=== PATIENT | male | born 1975 | race Caucasian/White ===

== ENCOUNTER 2020-02-13 15:33 | Outpatient (REF) | payer BC, SELFPAY | END 2020-02-13 15:34 | disposition home or self-care (01) | LOC: HO.LAB 15:33 | PROVIDERS: Visit Provider Internal Medicine | DX: Z20.828 Contact with and (suspected) exposure to other viral communicable diseases (principal) | CPT/HCPCS: 87635 ==

== ENCOUNTER 2023-07-08 13:46 | Outpatient (AMB) | payer BC, SELFPAY ==
[2023-07-08 13:49] VITALS: BP 138/72; PULSE 70; O2SAT 100; BMI 30.1
--- NOTE | 2023-07-08 13:49 | MHC.PC.OV ---
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 per policy Accompanied by: Self / Same As Patient Allergies No Known Allergies Allergy (Unverified 01/10/20 14:54) Medication List - Last Reconciled 07/08/23 by Momo Johnson MD [COLLAGEN powder scoop PO .QD] Tobacco use date assessed: 07/08/23 Dental Screening Dental Screen Date: 07/08/23 Did you have a dental visit in the last 12 months?: Yes Did you have a dental problem in the last 6 months where you did not have access to dental care?: No Was dental information given to patient?: Patient has dentist HPI New patient Establish Care/see bulletin board HPI Details 47-year-old obese male with hypercholesterolemia coming in for the 1st time. PFSH Family History (Updated 07/08/23 @ 14:08 by Momo Johnson MD) Father Heart attack Mother Breast cancer Social History (Updated 07/08/23 @ 14:09 by Momo Johnson MD) Housing: House Alcohol intake: current Comment: 4-5x a week 4 beers Patient Tobacco Use Status: Never used Tobacco Current occupational status: employed Cognitive needs: No Hearing needs: No Vision needs: Yes (glasses ) Questionnaire PHQ-9 Over the last 2 weeks, how often have you been bothered by any of the following problems? 1. Little interest or pleasure in doing things: not at all 2. Feeling down, depressed, or hopeless: not at all 3. Trouble falling or staying asleep, or sleeping too much: not at all 4. Feeling tired or having little energy: not at all 5. Poor appetite or overeating: not at all 6. Feeling bad about yourself - or that you are a failure or have let yourself or your family down: not at all 7. Trouble concentrating on things, such as reading the newspaper or watching television: not at all 8. Moving or speaking so slowly that other people could have noticed. Or the opposite - being so fidgety or restless that you have been moving around a lot more than usual: not at all 9. Thoughts that you would be better off or of hurting yourself in some way: not at all Total score: 0 Source: Developed by Drs. Deni Smith, Anel Gaspar, Cisco Mitchell and colleagues, with an educational helen from [employer]. Thrive Questionnaire Date Thrive assessed: 07/08/23 I am a: Patient What is your living situation today?: I have a steady place to live Within the past 12 months, did the food you bought not last and you didn't have the money to get more?: Never true Within the past 12 months, did you worry whether your food would run out before you got money to buy more?: Never true Do you have trouble paying for medicines?: No Do you have trouble getting transportation to medical appointments?: No Do you have trouble paying your heating and electricity bill?: No Do you have trouble taking care of your child, family member or friend?: No Do you have trouble with day-to-day activities such as bathing, preparing meals, shopping, managing finances, etc.?: No Are you currently unemployed and looking for a job?: No Are you interested in more education?: No Please select the resources that you would like help with: None THRIVE Score: 0 AUDIT C Alcohol Use Questionnaire (AUDIT-C) 1. How often do you have a drink containing alcohol?: Never Total Score: 0 BELINDA-7 AMB Questionnaire BELINDA-7 Date BELINDA - 7 assessed: 07/08/23 Feeling nervous, anxious, or on edge: 0 = Not at all Not being able to stop or control worryin = Not at all Worrying too much about different things: 0 = Not at all Trouble relaxin = Not at all Being so restless that it is hard to sit still: 0 = Not at all Becoming easily annoyed or irritable: 0 = Not at all Feeling afraid as if something awful might happen: 0 = Not at all Total BELINDA-7 score (0-4 normal; 5-9 mild; 10-14 moderate; 15-21 severe): 0 Source: Developed by Anel Stone Kurt Kroenke and colleagues, with an educational helen from [employer]. Physical exam (Primary Care) Vital Signs: Last Vital Signs Pulse 70 07/08/23 13:49 BP 138/72 07/08/23 13:49 Pulse Ox 100 07/08/23 13:49 Oxygen Delivery Method Room Air 07/08/23 13:49 BMI result Body Mass Index 30.1 Tobacco/Smoking Status: Tobacco use Status Tobacco use date assessed 07/08/23 07/08/23 13:50 Patient Tobacco Use Status Never used Tobacco 07/08/23 13:50 PHQ-9: PHQ-9 Score PHQ-9: Total score 0 07/08/23 14:04 Thrive Assessment: Date of Thrive Assessment Date Thrive assessed 07/08/23 07/08/23 13:50 Const General: alert; No acute distress Eyes Conjunctivae: conjunctivae normal Resp Auscultation: clear to auscultation bilaterally Cardio Rate: regular rate Rhythm: regular rhythm GI Inspection: Yes normal to inspection Abdomen image: 1. Bulging midline of the abdominal musculature Extrem General: Yes normal to inspection and No edema Assessment and Plan Assessment & Plan (1) Obesity (BMI 30.0-34.9): Code(s): E66.9 - Obesity, unspecified Plan: Diet and exercise (2) Hypercholesterolemia: Code(s): E78.00 - Pure hypercholesterolemia, unspecified Plan: Avoid fried foods, chicken skin, eggs, butter margarine, pastries and meat. Be it pork or beef they have a lot of cholesterol LDL goal of less than 130 and triglyceride of less than 150 will request for new blood work (3) Colon cancer screening: Code(s): Z12.11 - Encounter for screening for malignant neoplasm of colon Plan: Referral to Gastroenterology done (4) Diastasis recti: Code(s): M62.08 - Separation of muscle (nontraumatic), other site Plan: Reassurance Orders: Orders Comprehensive Met. Panel Today E78.00 - Pure hypercholesterolemia, unspecified Free T4 (Free Thyroxine) Today E78.00 - Pure hypercholesterolemia, unspecified Complete Blood Count Auto Diff Today E78.00 - Pure hypercholesterolemia, unspecified Thyroid Stimulating Hormone Today E78.00 - Pure hypercholesterolemia, unspecified Vitamin B12 and Folate Today E78.00 - Pure hypercholesterolemia, unspecified Lipid Panel Today E78.00 - Pure hypercholesterolemia, unspecified Referrals Gastroenterology Referral Z12.11 - Encounter for screening for malignant neoplasm of colon Coding Level of Care Code New Pt Level 4 (00537) Diagnoses Obesity (BMI 30.0-34.9) E66.9 Hypercholesterolemia E78.00 Colon cancer screening Z12.11 Diastasis recti M62.08
== END 2023-07-08 14:25 | disposition home or self-care (01) ==
PROVIDERS: PCP Internal Medicine; Visit Provider Internal Medicine
DX: E78.00 Pure hypercholesterolemia, unspecified (principal); E66.9 Obesity, unspecified; Z68.30 Body mass index [BMI] 30.0-30.9, adult; Z12.11 Encounter for screening for malignant neoplasm of colon; M62.08 Separation of muscle (nontraumatic), other site
CPT/HCPCS: 99204

== ENCOUNTER 2023-10-04 09:01 | Outpatient (AMB) | payer BC, SELFPAY ==
[2023-10-04 09:12] VITALS: BP 151/77; PULSE 54; BMI 30.1
--- NOTE | 2023-10-04 09:12 | A.OFFVIS_ITS ---
Vital Signs 10/04/23 09:12 Height 5 ft 9 in Weight 203 lb 11.314 oz BMI 30.1 BP 151/77 H Blood Pressure Location Rt brachial Position Sitting Pulse 54 Intake Visit Reasons: Colonoscopy screening Intake Note: Jose Luis presents in office today as a new patient for colonoscopy screening. CC: Patient has never had a colonoscopy before. Denies having any GI symptoms or oncerns today. Life Skills Coach Required: No Allergies No Known Allergies Allergy (Verified 10/04/23 09:25) HPI HPI Colonoscopy screening: Details: 48-year-old male here for preprocedural meeting to discuss a screening colonoscopy. He is referred by Momo Johnson of [facility] primary care. P.m. X Obesity High cholesterol Diastasis recti * SURGICAL HISTORY pT DENIES * ALLERGIES: NKDA * [employer] LABS: None in our system TODAY'S VISIT This is his first colonoscopy. He denies any bowel or upper GI problems.. He is naive to anesthesia and sedation.. He denies any cardiac or respiratory problems.. No ID problems. There is no known FHX of crc or polyps. [facility] Surgical History (Updated 10/04/23 @ 09:25 by EVAN Zarate) No pertinent past surgical history Family History Father Heart attack Mother Breast cancer Social History Housing: House Alcohol intake: current Comment: 4-5x a week 4 beers Patient Tobacco Use Status: Never used Tobacco Current occupational status: employed Cognitive needs: No Hearing needs: No Vision needs: Yes (glasses ) Review of Systems Const Denies fatigue, Denies fever(s), Denies night sweats, Denies poor appetite and Denies weight loss ENT Reports Normal hearing present, Denies dental pain, Denies dysphagia, Denies hearing loss, Denies mouth pain, Denies odynophagia, Denies throat swelling, Denies tongue swelling and Reports other (Dentition adequate) Card Reports no additional complaints Resp Reports no additional complaints GI Details: Denies abdominal pain, Denies melena, Denies bloating, Denies hematochezia, Denies constipation, Denies GI cramping, Denies dysphagia, Denies excessive flatus, Denies early satiety, Denies heartburn, Denies diarrhea, Denies nausea, Denies odynophagia, Denies vomiting and Denies hematemesis Skin/Breast Denies pruritus, Denies lesions, Denies rash and Denies jaundice Neuro Reports Normal hearing present and Denies Abnormal speech present Endo Denies fatigue Aller/Immun Denies throat swelling and Denies tongue swelling Physical Exam Vital Signs: Last Vital Signs Pulse 54 10/04/23 09:12 BP 151/77 H 10/04/23 09:12 BMI result Body Mass Index 30.1 Const General: cooperative, no acute distress, well developed and well groomed Nutritional Appearance: well nourished and obese centrally obese Orientation/consciousness: oriented to person, oriented to place and oriented to time Limitations: No language barrier HEENT Head: Yes normocephalic and Yes atraumatic Eyes General: appearance normal, both eyes and all related structures Pupils: Equal, round and reactive pupils present Neck Neck: Yes normal visual inspection and Yes no lymphadenopathy Thyroid: Thyroid normal Resp Effort & Inspection: normal respiratory effort and able to speak in complete sentences Auscultation: clear to auscultation bilaterally Cardio Rate: regular rate Rhythm: regular rhythm Heart sounds: Normal, physiologic split S2 sound present Peripheral pulses: radial pulses present and posterior tibial pulses present GI Other: Rectus abdominis Inspection: No distended, No Abdominal panniculus present and Yes obesity Palpation (GI): Soft to palpation, nontender, no guarding, not rigid and No hepatosplenomegaly present Percussion: Yes normal to percussion Auscultation: normal bowel sounds Rectal Exam - Male: Yes deferred Skin General skin exam: no rashes or lesions noted, turgor normal, skin not dry, no jaundice, No spider nevi and no striae Rashes: no rashes Nails: normal Neuro General: oriented to person, oriented to place and oriented to time Cranial nerves: Yes Equal, round and reactive pupils present and Yes Normal hearing present Speech: No Abnormal speech present Extrem General: Yes normal to inspection, No clubbing, No cyanosis and No edema Psych Appearance: grossly normal and well kempt Mental Status: mental status grossly normal Speech and movement: Normal speech and movement present Affect: normal affect Attitude: cooperative Thought process: Normal thought process present and not confabulating Thought content: Normal thought content present Insight: Good insight present (Psych) Judgement: Good judgement present (Psych) Assessment & Plan Assessment & Plan (1) Pre-op examination: Code(s): Z01.818 - Encounter for other preprocedural examination Category: Medical Plan This is his first colonoscopy. He denies any bowel or upper GI problems.. He is naive to anesthesia and sedation.. He denies any cardiac or respiratory problems.. No ID problems. There is no known FHX of crc or polyps. Orders: Orders Colonoscopy - GI Use Only Today Z01.818 - Encounter for other preprocedural examination Comprehensive Met. Panel Today Z01.818 - Encounter for other preprocedural examination Complete Blood Count Auto Diff Today Z01.818 - Encounter for other preprocedura l examination Medications: New sod sulf-pot chloride-mag sulf 1.479-0.188- 0.225 gram (Sutab) PO PER PKG DIR for colonoscopy prep 24 tabs 0RF Coding Level of Care Code New Pt Level 3 (56666) Diagnoses Pre-op examination Z01.81
== END 2023-10-04 10:11 | disposition home or self-care (01) ==
PROVIDERS: PCP Internal Medicine; Visit Provider Nurse Practitioner
DX: Z01.818 Encounter for other preprocedural examination (principal); Z12.11 Encounter for screening for malignant neoplasm of colon
CPT/HCPCS: S0285

== ENCOUNTER → 2023-10-04 09:01 | Outpatient (BNVA) | payer BC, SELFPAY | PROVIDERS: PCP Internal Medicine; Visit Provider Nurse Practitioner ==

== ENCOUNTER 2023-11-08 09:09 | Outpatient (REF) | payer BC, SELFPAY ==
[2023-11-08 09:21] LABS: MANUAL DIFF FLAG NO
[2023-11-08 10:34] LABS: Basophils Absolute Auto 0.1 X10*3/uL (0.0-0.2); Basophils Percent Auto 0.7 % (0-2); Eosinophils Absolute Auto 0.1 X10*3/uL (0.0-0.4); Eosinophils Percent Auto 0.9 % (0-4); Hematocrit 47.4 % (42.0-52.0); Hemoglobin 16.4 g/dl (14.0-18.0); Imm Gran Abs Auto 0.03 X10*3/uL (0.00-0.03); Imm Gran Pct Auto 0.3 % (0.0-0.4); Lymphocytes Absolute Auto 2.3 X10*3/uL (1.2-4.9); Lymphocytes Percent Auto 26.1 % (20-40); Mean Corpuscular HGB Conc 34.6 g/dl (31.0-36.0); Mean Corpuscular Hemoglobin 31.2 pg (27.0-33.0); Mean Corpuscular Volume 90.3 fL (80.0-98.0); Mean Platelet Volume 10.4 fL (9.4-12.4); Monocytes Percent Auto 11.1 % (2-11); Neutrophils Absolute Auto 5.3 x10*3/uL (2.0-8.3); Neutrophils Percent Auto 60.9 % (45-73); Platelet Count 227 X10*3/uL (160-400); Red Blood Count 5.25 X10*6/uL (4.60-5.80); Red Cell Distribution Width 12.6 % (11.0-16.0); White Blood Count 8.8 X10*3/uL (4.8-10.8)
[2023-11-08 11:23] LABS: Alanine Aminotransferase 39 U/L (0-40); Albumin Level 4.6 g/dL (3.5-5.0); Alkaline Phosphatase 58 U/L (39-117); Anion Gap 16 (12-20); Aspartate Amino Transferase 32 U/L (5-37); Bilirubin Total 1.2 mg/dL (0.0-1.0); Blood Urea Nitrogen 12 mg/dL (9-16); Calcium 9.4 mg/dL (8.4-10.2); Carbon Dioxide 27 mmol/L (22-29); Chloride 101 mmol/L (96-108); Cholesterol 203 mg/dL (<200); Estimated Glomerular Filt Rate > 60; Glucose Random 85 mg/dL (60-115); HDL Cholesterol 46 mg/dL (>40); LDL Cholesterol Calculated 117 mg/dL (<100); Potassium 3.6 mmol/L (3.3-5.1); Sodium 140 mmol/L (135-145); Total Protein 7.9 g/dL (6.5-8.0); Triglycerides 204 mg/dL (<150)
[2023-11-08 11:25] LABS: Thyroid Stimulating Hormone 2.78 uIU/mL (0.32-4.0)
[2023-11-08 11:38] LABS: Folate 12.7 ng/mL (> or = 4.0); Vitamin B12 300 pg/mL (200-900)
== END 2023-11-08 09:10 | disposition home or self-care (01) ==
LOC: HO.LAB 09:09
PROVIDERS: Absent Provider Nurse Practitioner; PCP Internal Medicine; Visit Provider Internal Medicine
DX: E78.00 Pure hypercholesterolemia, unspecified (principal)
CPT/HCPCS: 36415; 80053; 80061; 82607; 82746; 84439; 84443; 85025

== ENCOUNTER 2023-11-08 13:48 | Outpatient (AMB) | payer BC, SELFPAY ==
[2023-11-08 13:49] VITALS: BP 148/90; PULSE 59; O2SAT 97; BMI 29.7
--- NOTE | 2023-11-08 13:49 | A.OFFPC_ITS ---
Vital Signs 11/08/23 13:49 Height 5 ft 9 in Weight 201 lb 0.6 oz BMI 29.7 BP 148/90 H Blood Pressure Location Lt brachial Position Sitting Pulse 59 Pulse Source Pulse Oximeter Pulse Oximetry (%) 97 Oxygen Delivery Method Room Air Intake Visit Reasons: Annual exam Intake Note: Patient is here today for a physical. Accident Examiner Required: No Allergies No Known Allergies Allergy (Verified 11/08/23 13:50) Medication List - Last Reconciled 11/08/23 by Momo Johnson MD blood pressure monitor (Blood Pressure Kit) As directed [COLLAGEN powder scoop PO .QD] multivitamin 1 tab PO DAILY sod sulf-pot chloride-mag sulf 1.479-0.188- 0.225 gram (Sutab) PO PER PKG DIR for colonoscopy prep Tobacco use date assessed: 11/08/23 Dental Screening Dental Screen Date: 11/08/23 Did you have a dental visit in the last 12 months?: Yes Did you have a dental problem in the last 6 months where you did not have access to dental care?: No Was dental information given to patient?: Patient has dentist HPI Annual exam HPI Details 48-year-old obese male with hypercholest erolemia coming in for physical exam last seen in June 2023. Patient was referred to Gastroenterology for colon cancer screening. And was seen in September 2023 [facility] Medical History (Updated 11/08/23 @ 14:02 by Momo Johnson MD) Obesity (BMI 30.0-34.9) Surgical History (Updated 10/04/23 @ 09:25 by EVAN Zarate) No pertinent past surgical history Family History Father Heart attack Mother Breast cancer Social History (Updated 11/08/23 @ 14:09 by Momo Johnson MD) Housing: House Alcohol intake: current Comment: 4-5x a week glass of wine Patient Tobacco Use Status: Never used Tobacco Current occupational status: employed Cognitive needs: No Hearing needs: No Vision needs: Yes (glasses ) Questionnaire PHQ-9 Over the last 2 weeks, how often have you been bothered by any of the following problems? 1. Little interest or pleasure in doing things: not at all 2. Feeling down, depressed, or hopeless: not at all 3. Trouble falling or staying asleep, or sleeping too much: not at all 4. Feeling tired or having little energy: not at all 5. Poor appetite or overeating: not at all 6. Feeling bad about yourself - or that you are a failure or have let yourself or your family down: not at all 7. Trouble concentrating on things, such as reading the newspaper or watching television: not at all 8. Moving or speaking so slowly that other people could have noticed. Or the opposite - being so fidgety or restless that you have been moving around a lot more than usual: not at all 9. Thoughts that you would be better off or of hurting yourself in some way: not at all Total score: 0 Depression Screening Interpretation: Negative Depression Screening Done: Yes 10871 - PHQ-9 Billing: Yes Source: Developed by Drs. Deni Smith, Anel Gaspar, Cisco Mitchell and colleagues, with an educational helen from [employer]. Thrive Questionnaire Date Thrive assessed: 07/08/23 I am a: Patient What is your living situation today?: I have a steady place to live Within the past 12 months, did the food you bought not last and you didn't have the money to get more?: Never true Within the past 12 months, did you worry whether your food would run out before you got money to buy more?: Never true Do you have trouble paying for medicines?: No Do you have trouble getting transportation to medical appointments?: No Do you have trouble paying your heating and electricity bill?: No Do you have trouble taking care of your child, family member or friend?: No Do you have trouble with day-to-day activities such as bathing, preparing meals, shopping, managing finances, etc.?: No Are you currently unemployed and looking for a job?: No Are you interested in more education?: No Please select the resources that you would like help with: None Currently or been in a relationship where the following occur: No concerns reported THRIVE Score: 0 AUDIT C Alcohol Use Questionnaire (AUDIT-C) 1. How often do you have a drink containing alcohol?: Never Total Score: 0 BELINDA-7 AMB Questionnaire BELINDA-7 Date BELINDA - 7 assessed: 11/08/23 Feeling nervous, anxious, or on edge: 0 = Not at all Not being able to stop or control worryin = Not at all Worrying too much about different things: 0 = Not at all Trouble relaxin = Not at all Being so restless that it is hard to sit still: 0 = Not at all Becoming easily annoyed or irritable: 0 = Not at all Feeling afraid as if something awful might happen: 0 = Not at all Total BELINDA-7 score (0-4 normal; 5-9 mild; 10-14 moderate; 15-21 severe): 0 Source: Developed by Drs. Deni Smith, Anel Gaspar, Cisco Mitchell and colleagues, with an educational helen from [employer]. BELINDA-7 Assessment Billing BELINDA-7 Assessment Tool: BELINDA-7 Assessment 06220 Review of Systems Const Denies poor appetite and Denies weakness Eyes Denies no additional complaints ENT Reports Normal hearing present, Denies dizziness, Denies nasal congestion, Denies tinnitus and Denies sore throat Card Denies chest pain, Denies syncope, Denies rapid heart rate and Denies dyspnea Resp Denies cough and Denies dyspnea GI Denies change in stool character, Reports constipation, Denies diarrhea, Denies nausea and Denies vomiting Denies dysuria and Denies urinary frequency Neuro Reports Normal hearing present, Denies confusion, Denies dizziness, Denies syncope and Denies weakness Psych Denies confusion Physical exam (Primary Care) Vital Signs: Last Vital Signs Pulse 59 11/08/23 13:49 BP 148/90 H 11/08/23 13:49 Pulse Ox 97 11/08/23 13:49 Oxygen Delivery Method Room Air 11/08/23 13:49 BMI result Body Mass Index 29.7 Tobacco/Smoking Status: Tobacco use Status Tobacco use date assessed 11/08/23 11/08/23 13:57 Patient Tobacco Use Status Never used Tobacco 11/08/23 14:09 PHQ-9: PHQ-9 Score PHQ-9: Total score 0 11/08/23 13:57 Depression Screening Interpretation: Negative Thrive Assessment: Date of Thrive Assessment Date Thrive assessed 07/08/23 11/08/23 13:51 Currently or been in a relationship where the following occur: No concerns reported Const General: No confusion Orientation/consciousness: No confusion HENMT Head: Yes normocephalic Ears: external ears normal and TM's normal bilaterally Face and sinus: Yes normal facial exam Mouth: moist mucous membranes Throat: Yes tonsils normal Eyes Conjunctivae: conjunctivae normal Pupils: Equal, round and reactive pupils present and Pupil accommodation reflex normal Direct Ophthalmoscopy: normal light reflex Neck Neck: No lymphadenopathy Thyroid: Thyroid normal Chest Chest palpation & inspection: normal inspection of the chest Resp Effort & Inspection: normal respiratory effort and no audible wheezes Auscultation: clear to auscultation bilaterally, no crackles, no wheezes and lung sounds not diminished Cardio Rate: regular rate Rhythm: regular rhythm Peripheral pulses: radial pulses present and dorsalis pedis present GI Other: colon test pending Palpation (GI): no masses Auscultation: normal bowel sounds and normoactive bowel sounds Rectal Exam - Male: Yes deferred Male General Exam: Yes normal external exam Skin General skin exam: no rashes or lesions noted Rashes: no rashes Neuro General: No confusion Cranial nerves: Yes Equal, round and reactive pupils present and Yes Normal hearing present Cognition (Neuro): normal cognition Gait exam (Neuro): Normal gait present Motor exam (neuro): 5/5 motor strength present throughout Deep tendon reflexes (DTR's): Right brachioradialis reflex intensity grade: 2+, Left brachioradialis reflex intensity grade: 2+, Right patellar reflex intensity grade: 2+ and Left patellar reflex intensity grade: 2+ Extrem General: No edema Assessment and Plan Assessment & Plan (1) Annual physical exam: Code(s): Z00.00 - Encounter for general adult medical examination without abnormal findings Plan: Patient is advised to eat healthy, keep well hydrated, keep active and have adequate sleep. (2) Hypercholesterolemia: Code(s): E78.00 - Pure hypercholesterolemia, unspecified Plan: Avoid fried foods, chicken skin, eggs, butter margarine, pastries and meat. Be it pork or beef they have a lot of cholesterol LDL goal of less than 130 and triglyceride of less than 150 (3) Colon cancer screening: Code(s): Z12.11 - Encounter for screening for malignant neoplasm of colon Plan: Patient has seen gastroenterology and planned colonoscopy. (4) Overweight (BMI 25.0-29.9): Code(s): E66.3 - Overweight Plan: Diet and exercise (5) Blood pressure elevated without history of HTN: Code(s): R03.0 - Elevated blood-pressure reading, without diagnosis of hypertension Medications: New blood pressure monitor (Blood Pressure Kit) As directed 1 ea 0RF I10 - Essential (primary) hypertension, R03.0 - Elevated blood-pressure reading, without diagnosis of hypertension Coding Level of Care Code Est Pt Prev Care 40-64y(71399) Diagnoses Annual physical exam Z00.00 Hypercholesterolemia E78.00 Colon cancer screening Z12.11 Overweight (BMI 25.0-29.9) E66.3 Blood pressure elevated without history of HTN R03.0 Additional Codes BELINDA-7 Assessment Billing - BELINDA-7 Assessment Tool: BELINDA-7 Assessment [id number] ([id number])
== END 2023-11-08 14:23 | disposition home or self-care (01) ==
PROVIDERS: PCP Internal Medicine; Visit Provider Internal Medicine
DX: Z00.00 Encounter for general adult medical examination without abnormal findings (principal); E78.00 Pure hypercholesterolemia, unspecified; Z12.11 Encounter for screening for malignant neoplasm of colon; E66.3 Overweight; R03.0 Elevated blood-pressure reading, without diagnosis of hypertension
CPT/HCPCS: 99396

== ENCOUNTER 2024-02-15 11:02 | Day surgery (SDC) | payer BC, SELFPAY ==
[2024-02-13 14:33] VITALS: BMI 29.7
--- NOTE | 2024-02-14 09:22 | HO.ANESPROP2 ---
Documented by User: Daphnie Stephenson NP 02/14/24 09:22 HPI - Anesthesia Eval Consult details Narrative: 48yo M for Colonoscopy [facility] Active Problems Active Problems: All Active Problems Blood pressure elevated without history of HTN (Acute) Overweight (BMI 25.0-29.9) (Acute) Annual physical exam (Acute) Pre-op examination (Acute) Diastasis recti (Acute) Colon cancer screening (Acute) Hypercholesterolemia (Acute) Past Medical History Medical History Obesity (BMI 30.0-34.9) Family History Family History Father Heart attack Mother Breast cancer Surgical History Surgical History No pertinent past surgical history Social History Social History Housing: House Alcohol intake: current Comment: 4-5x a week glass of wine Patient Tobacco Use Status: Never used Tobacco Advance Directives: No Advance Directives Information Provided: Yes Current occupational status: employed Cognitive needs: No Hearing needs: No Vision needs: Yes (glasses ) Meds Allergies Allergy/AdvReac Type Severity Reaction Status Date / Time No Known Allergies Allergy Verified 11/08/23 13:50 Home Medications ?Medication ?Instructions ?Recorded ?Confirmed ?Last Taken ?Type COLLAGEN powder scoop PO .QD 07/08/23 11/08/23 Unknown History multivitamin 1 tab PO DAILY 11/08/23 02/13/24 Unknown History Exam Height,Weight and Vital Signs: Height 5 ft 9 in Weight 91.172 kg Assessment and Plan Assessment Anesthesia Assessment: Chart Reviewed Documented by User: Kayli Heath MD 02/15/24 13:06 [facility] Past Medical History Medical History Obesity (BMI 30.0-34.9) Family History Family History Father Heart attack Mother Breast cancer Family history of problems with anesthesia: No Surgical History Surgical History No pertinent past surgical history History of Problems with Anesthesia: No Social History Social History Housing: House Alcohol intake: current Comment: 4-5x a week glass of wine Patient Tobacco Use Status: Never used Tobacco Advance Directives: No Advance Directives Information Provided: Yes Current occupational status: employed Cognitive needs: No Hearing needs: No Vision needs: Yes (glasses ) Meds Allergies Allergy/AdvReac Type Severity Reaction Status Date / Time No Known Allergies Allergy Verified 11/08/23 13:50 Home Medications ?Medication ?Instructions ?Recorded ?Confirmed ?Last Taken ?Type COLLAGEN powder scoop PO .QD 07/08/23 11/08/23 Unknown History multivitamin 1 tab PO DAILY 11/08/23 02/13/24 Unknown History Exam Airway Mallampati Class: II TM Dist: >3cm Neck ROM: Full Heart: rrr Lungs: cta Assessment and Plan Assessment Anesthesia Assessment: Anesthesia Plan Discussed Final Anesthetic Review Family History of Problems with Anesthesia: No History of Problems with Anesthesia: No NPO: Yes ASA Class: III Final Preanesthetic Review: No Changes in Pt Med Stat, Meds/Allgs Chart Reviewed, Consent Obtained/Reviewed and Anes Risks/Benef Reviewed Patient Risk: Intermediate Procedure Risk: Low Anesthetic Plan Anesthetic Plan: MAC: Disposition: Standard PACU
[2024-02-15 11:43] VITALS: BMI 29.4
--- NOTE | 2024-02-15 12:03 | MHC.SHP ---
Pre-Procedural Eval Section A - 24 Hr Update-Section A only Date of Service: 02/15/24 Section B - Complete if H&P > 30 days Chief Complaint: screening Relevant Family History (Specify if Yes): No Relevant Social History: None Present Medications: see Short Stay Collaborative assessment Medical History: Significant History (Obesity High cholesterol Diastasis recti) History of Previous Operations: Relevant previous surgery/procedure and date(s) Allergies: Allergies Allergy/AdvReac Type Severity Reaction Status Date / Time No Known Allergies Allergy Verified 11/08/23 13:50 Review of Systems Sugical H&P ROS: Negative: Constitution, Cardiovascular, Respiratory, Neurological, Psychiatric, Hem-Onc, Allergic/Immunologic, Gastrointestinal, Genitourinary, Musculoskeletal, Integumentary, Endocrine and Eyes/Ears/Nose/Throat Exam Surgical H&P Exam: Normal: HEENT, Normal: Heart, Normal: Lungs, Normal: Extremities, Normal: Abdomen, Normal: Skin and Normal: Neurological Plan Diagnosis/Plan: Unchanged I have reviewed the history and physical and performed a pertinent physical examination on my patient. No changes have occurred unless specified. Time Spent With Patient Time: Total time managing care of this patient today ____ minutes.
[2024-02-15] MEDS: Lactated Ringers 1,000 ML 100 ML IVCONT (12:08)
[2024-02-15 12:09] VITALS: BP 170/83; PULSE 62; RESP 16; TEMP 36.3; O2SAT 99
--- NOTE | 2024-02-15 13:01 | HO.OPN-COLON ---
Colonoscopy Operative Note Operative Note Date of Service: 02/15/24 Narrative: Operative Information Procedure Description: Colonoscopy Indication: screening Anesthesia: MAC COLONOSCOPY Instrument: Olympus variable stiffness pediatric scope 190L Colonoscopy Monitoring: Vital signs and clinical assessment, continuous EKG monitoring, Pulse oximetry, Carbon Dioxide monitoring and blood pressure monitoring were done throughout the procedure. Colon withdrawal time was 14 minutes. Procedure: The patient was placed in the left lateral decubitis position and pre-procedure medications were administered. After a digital rectal examination of the ano-rectum, the video colonoscope was inserted into the rectum and advanced through the colon to the cecum/TI. The colonoscope was slowly withdrawn in a retrograde panoramic fashion and the colon mucosa was carefully examined including a retroflexed view of the rectum. Findings and interventions are described below. Procedure Difficulty: easy Findings: Terminal Ileum-normal Cecum:normal Ascending Colon: 8-10 mm sessile polyp removed with cold snare Transverse Colon -normal Descending Colon:normal Sigmoid Colon: normal Rectum: Retroflexion with small internal hemorrhoids seen, grade I, 12 mm flat polyp lifted with eleview and removed with cold snare with one clip applied for hemostasis Anorectum - normal Intervention: cold snare, EMR with cold snare and eleview injection Colon preparation: Antoine Bowel Preparation Scale Right colon; 2 Transverse colon: 2 Left colon; 2 (0 = Unprepared colon segment with mucosa not seen due to solid stool that cannot be cleared. 1 = Portion of mucosa of the colon segment seen, but other areas of the colon segment not well seen due to staining, residual stool and/or opaque liquid. 2 = Minor amount of residual staining, small fragments of stool and/or opaque liquid, but mucosa of colon segment seen well. 3 = Entire mucosa of colon segment seen well with no residual staining, small fragments of stool or opaque liquid) Impression and Post Procedure Diagnosis: colon polyps internal hemorrhoids Plan: High fiber diet leaflet Avoid straining at stool, epsom salts and sitz bath, anusol supps or cream Repeat Colonoscopy in 3-4 years due to polyps or earlier if clinically indicated Above findings were reviewed with the patient and relevant handouts were provided if indicated.
[2024-02-15 13:06] VITALS: BP 109/65; PULSE 74; RESP 16; TEMP 36.6; O2SAT 98
[2024-02-15 13:20] VITALS: BP 124/80; PULSE 64; RESP 16; TEMP 36.6; O2SAT 100
== END 2024-02-15 14:10 | disposition home or self-care (01) ==
PROVIDERS: PCP Internal Medicine; Visit Provider Internal Medicine Gastroenterology
PROC: 0DJD8ZZ Inspection of Lower Intestinal Tract, Via Natural or Artificial Opening Endoscopic (ICD-10-PCS; CPT 45378; principal; 2024-02-15 12:10)
DX: Z12.11 Encounter for screening for malignant neoplasm of colon (principal); D12.2 Benign neoplasm of ascending colon; D12.8 Benign neoplasm of rectum; K64.0 First degree hemorrhoids; E78.00 Pure hypercholesterolemia, unspecified; M62.08 Separation of muscle (nontraumatic), other site; E66.9 Obesity, unspecified; Z68.30 Body mass index [BMI] 30.0-30.9, adult; Z79.899 Other long term (current) drug therapy
CPT/HCPCS: 45385; 45381; 88305; J2003; J2250; J2704

== ENCOUNTER → 2024-02-15 11:02 | Outpatient (BNV) | payer BC, SELFPAY | PROVIDERS: PCP Internal Medicine; Visit Provider Internal Medicine Gastroenterology | DX: Z12.11 Encounter for screening for malignant neoplasm of colon (principal); D12.8 Benign neoplasm of rectum; D12.2 Benign neoplasm of ascending colon; K64.0 First degree hemorrhoids | CPT/HCPCS: 45381; 45385 ==

== ENCOUNTER 2024-03-15 08:43 | Outpatient (AMB) | payer BC, SELFPAY ==
--- NOTE | 2024-03-15 08:46 | MHC.PC.OV ---
Vital Signs 03/15/24 08:47 Height 5 ft 9 in Weight 209 lb BMI 30.9 BP 110/78 Blood Pressure Location Lt brachial Position Sitting Pulse 80 Pulse Source Pulse Oximeter Pulse Oximetry (%) 98 Oxygen Delivery Method Room Air Intake Visit Reasons: elevated BP Allergies No Known Allergies Allergy (Verified 03/15/24 08:47) Tobacco use date assessed: 11/08/23 Dental Screening Dental Screen Date: 11/08/23 HPI elevated BP HPI Details 48-year-old obese male with hypercholesterolemia coming in for follow-up October last seen for physical exam noted to have an elevated blood pressure. Patient is here for follow-up. Up-to-date with colonoscopy January 2024. 3-4 year . Patient recently went to an Urgent Center because of pain on the left lateral foot denies any trauma or alcohol bingeing the night before and was seen there and was told gout. Patient was given an unknown medication which seemed to have resolved it in a couple of days. With this prompting for consultation. [facility] Medical History Obesity (BMI 30.0-34.9) Surgical History No pertinent past surgical history Family History Father Heart attack Mother Breast cancer Social History Housing: House Alcohol intake: current Comment: 4-5x a week glass of wine Patient Tobacco Use Status: Never used Tobacco Tobacco use type: Cigarette e-Cigarette/Vaping Use: Never Used Second Hand Smoke Exposure: No service: No Current occupational status: employed Current occupational exposures/hazards: No Cognitive needs: No Hearing needs: No Vision needs: Yes (glasses ) Questionnaire PHQ-9 Over the last 2 weeks, how often have you been bothered by any of the following problems? 1. Little interest or pleasure in doing things: not at all 2. Feeling down, depressed, or hopeless: not at all 3. Trouble falling or staying asleep, or sleeping too much: not at all 4. Feeling tired or having little energy: not at all 5. Poor appetite or overeating: not at all 6. Feeling bad about yourself - or that you are a failure or have let yourself or your family down: not at all 7. Trouble concentrating on things, such as reading the newspaper or watching television: not at all 8. Moving or speaking so slowly that other people could have noticed. Or the opposite - being so fidgety or restless that you have been moving around a lot more than usual: not at all 9. Thoughts that you would be better off or of hurting yourself in some way: not at all Total score: 0 Depression Screening Interpretation: Negative Depression Screening Done: Yes 05743 - PHQ-9 Billing: Yes Source: Developed by Drs. Deni Smith, Anel Gaspar, Cisco Mitchell and colleagues, with an educational helen from [facility]. Thrive Questionnaire Date Thrive assessed: 07/08/23 AUDIT C Alcohol Use Questionnaire (AUDIT-C) 2. How many drinks containing alcohol do you have on a typical day when you are drinking?: 3 or 4 3. How often do you have six or more drinks on one occasion?: Weekly Total Score: 4 BELINDA-7 AMB Questionnaire BELINDA-7 Date BELINDA - 7 assessed: 11/08/23 Source: Developed by Drs. Deni Smith, Anel Gaspar, Cisco Mitchell and colleagues, with an educational helen from [facility]. Physical exam (Primary Care) Vital Signs: Last Vital Signs Pulse 80 03/15/24 08:47 BP 110/78 03/15/24 08:47 Pulse Ox 98 03/15/24 08:47 Oxygen Delivery Method Room Air 03/15/24 08:47 BMI result Body Mass Index 30.9 Tobacco/Smoking Status: Tobacco use Status Tobacco use date assessed 11/08/23 03/15/24 08:50 Patient Tobacco Use Status Never used Tobacco 03/15/24 08:50 Tobacco use type Cigarette 03/15/24 08:50 e-Cigarette/Vaping Use Never Used 03/15/24 08:50 PHQ-9: PHQ-9 Score PHQ-9: Total score 0 03/15/24 08:50 Depression Screening Interpretation: Negative Thrive Assessment: Date of Thrive Assessment Date Thrive assessed 07/08/23 03/15/24 08:50 Const General: alert; No acute distress Eyes Conjunctivae: conjunctivae normal Resp Auscultation: clear to auscultation bilaterally Cardio Rate: regular rate Rhythm: regular rhythm GI Inspection: Yes normal to inspection Extrem Other: With mild bump, left lateral redness left foot General: Yes normal to inspection and No edema Ankle/foot/toe images: 1. Mild redness with left lateral bump on the left foot Office Procedures Flu Questionnaire Does the patient have a severe egg allergy?: No Does the patient have severe life threatening allergies?: No Does the patient have a fever or illness today?: No Has the patient ever had Guillain-Huron Syndrome?: No Has the patient ever had any past reaction to a flu shot?: No Immunizations Fluarix Triv [id number] (PF) 45 mcg (15 mcg x 3)/0.5 mL IM syringe Performing Provider: Momo Johnson MD [facility] Administered by: Grace Eagle CMA on 03/15/24 08:55 Dose Route Admin Location Dispensed Lot Number Expiration Date [place] Life Support Technician 0.5 mL IM Left Deltoid 0.5 mL [id number] 10/22/24 30931-084-18 [employer] VIS Given Date VIS Provided VIS Publication Date 03/15/24 Single Vaccine 20 Eligibility Eligibility Date Funding Source Not [facility] Eligible 03/15/24 Private Coding Level of Care Code Est Pt Level 4 (10916) Diagnoses Overweight (BMI 25.0-29.9) E66.3 Blood pressure elevated without history of HTN R03.0 Hypercholesterolemia E78.00 Tubular adenoma of colon D12.6 Foot pain, left M79.672 Additional Codes PHQ-9 - 26443 - PHQ-9 Billing: Yes ([id number]) Assessment & Plan Assessment & Plan (1) Overweight (BMI 25.0-29.9): Code(s): E66.3 - Overweight Category: Medical Plan: Diet and exercise (2) Blood pressure elevated without history of HTN: Code(s): R03.0 - Elevated blood-pressure reading, without diagnosis of hypertension Category: Medical Plan: Resolved (3) Hypercholesterolemia: Code(s): E78.00 - Pure hypercholesterolemia, unspecified Category: Medical Plan: Avoid fried foods, chicken skin, eggs, butter margarine, pastries and meat. Be it pork or beef they have a lot of cholesterol LDL goal of less than 130 and triglyceride of less than 150 (4) Tubular adenoma of colon: Comment: 01/2024 3-4 you Code(s): D12.6 - Benign neoplasm of colon, unspecified Category: Medical Plan: Colonoscopy done 01/2024 (5) Foot pain, left: Code(s): M79.672 - Pain in left foot Category: Medical Plan: patient was treated for gout ? med , presently resolve, will do xray and uric acid testing. Discussed about reasons for pain on the foot and with the left lateral bump will do an x-ray of the left foot. Meanwhile will request for uric acid and blood work. Orders: Orders Influenza [id number] Immunization Today Z23 - Encounter for immunization Complete Blood Count Auto Diff Today M79.672 - Pain in left foot Comprehensive Met. Panel Today M79.672 - Pain in left foot XR foot LT min 3V Today M79.672 - Pain in left foot Uric Acid Today M79.672 - Pain in left foot
[2024-03-15 08:47] VITALS: BP 110/78; PULSE 80; O2SAT 98; BMI 30.9
== END 2024-03-15 10:38 | disposition home or self-care (01) ==
PROVIDERS: PCP Internal Medicine; Visit Provider Internal Medicine
DX: E66.3 Overweight (principal); R03.0 Elevated blood-pressure reading, without diagnosis of hypertension; E78.00 Pure hypercholesterolemia, unspecified; D12.6 Benign neoplasm of colon, unspecified; M79.672 Pain in left foot; Z23 Encounter for immunization

== ENCOUNTER → 2024-03-15 08:43 | Outpatient (BNVA) | payer BC, SELFPAY | PROVIDERS: PCP Internal Medicine; Visit Provider Internal Medicine | DX: E66.3 Overweight (principal); Z68.30 Body mass index [BMI] 30.0-30.9, adult; R03.0 Elevated blood-pressure reading, without diagnosis of hypertension; E78.00 Pure hypercholesterolemia, unspecified; M79.672 Pain in left foot; Z86.0101 Personal history of adenomatous and serrated colon polyps; Z23 Encounter for immunization | CPT/HCPCS: 90471; 90656; 96127 ==

== ENCOUNTER 2024-04-27 09:23 | Outpatient (REF) | payer BC, SELFPAY ==
--- NOTE | ~2024-04-27 | XR_ITS ---
CLINICAL HISTORY: M79.672 - Pain in left foot 3 view left foot Comparison: None Findings: Bones intact. No dislocations. No significant arthritic change or erosions. No ankle effusion. No radiopaque foreign body. IMPRESSION: 1. No acute findings. This document has been electronically signed by: Per Stone MD on 05/01/2024 21:19:13
[2024-04-27 09:40] LABS: MANUAL DIFF FLAG NO
[2024-04-27 09:51] LABS: Basophils Absolute Auto 0.1 X10*3/uL (0.0-0.2); Basophils Percent Auto 0.6 % (0-2); Eosinophils Absolute Auto 0.2 X10*3/uL (0.0-0.4); Eosinophils Percent Auto 1.9 % (0-4); Hematocrit 45.8 % (42.0-52.0); Hemoglobin 15.2 g/dl (14.0-18.0); Imm Gran Abs Auto 0.05 X10*3/uL (0.00-0.03); Imm Gran Pct Auto 0.6 % (0.0-0.4); Lymphocytes Absolute Auto 1.7 X10*3/uL (1.2-4.9); Lymphocytes Percent Auto 21.7 % (20-40); Mean Corpuscular HGB Conc 33.2 g/dl (31.0-36.0); Mean Corpuscular Volume 93.5 fL (80.0-98.0); Mean Platelet Volume 10.2 fL (9.4-12.4); Monocytes Absolute Auto 1.3 X10*3/uL (0.1-1.2); Neutrophils Absolute Auto 4.8 x10*3/uL (2.0-8.3); Neutrophils Percent Auto 59.2 % (45-73); Platelet Count 241 X10*3/uL (160-400); Red Cell Distribution Width 12.9 % (11.0-16.0)
[2024-04-27 10:53] LABS: Alanine Aminotransferase 31 U/L (0-40); Albumin Level 4.1 g/dL (3.5-5.0); Alkaline Phosphatase 52 U/L (39-117); Anion Gap 13 (12-20); Aspartate Amino Transferase 26 U/L (5-37); Bilirubin Total 0.4 mg/dL (0.0-1.0); Blood Urea Nitrogen 13 mg/dL (9-16); Calcium 8.7 mg/dL (8.4-10.2); Carbon Dioxide 24 mmol/L (22-29); Chloride 108 mmol/L (96-108); Estimated Glomerular Filt Rate > 60; Glucose Random 82 mg/dL (60-115); Potassium 4.3 mmol/L (3.3-5.1); Sodium 141 mmol/L (135-145); Total Protein 7.4 g/dL (6.5-8.0)
== END 2024-04-27 09:24 | disposition home or self-care (01) ==
LOC: HO.LAB 09:23
PROVIDERS: Nurse Practitioner; PCP Internal Medicine; Visit Provider Internal Medicine
DX: Z01.818 Encounter for other preprocedural examination (principal); M79.672 Pain in left foot
CPT/HCPCS: 36415; 73630; 80053; 84550; 85025

== ENCOUNTER → 2024-04-27 09:43 | Outpatient (BNV) | payer BC, SELFPAY | PROVIDERS: PCP Internal Medicine; Visit Provider Radiology Vascular & Interventional Radiology | DX: M79.672 Pain in left foot (principal) | CPT/HCPCS: 73630 ==

== ENCOUNTER 2024-06-06 13:26 | Outpatient (AMB) | payer BC, SELFPAY ==
[2024-06-06 13:33] VITALS: BP 124/76; PULSE 80; O2SAT 98; BMI 30.6
--- NOTE | 2024-06-06 13:33 | A.OFFPC_ITS ---
Vital Signs 06/06/24 13:33 Height 5 ft 9 in Weight 207 lb BMI 30.6 BP 124/76 Blood Pressure Location Rt brachial Position Sitting Pulse 80 Pulse Source Pulse Oximeter Pulse Oximetry (%) 98 Oxygen Delivery Method Room Air Intake Visit Reasons: Hand referral Allergies No Known Allergies Allergy (Verified 06/06/24 13:33) Medication List - Last Reconciled 06/06/24 by Momo Johnson MD acetaminophen 650 mg PO Q6H PRN blood pressure monitor (Blood Pressure Kit) As directed [COLLAGEN powder scoop PO .QD] multivitamin 1 tab PO DAILY Tobacco use date assessed: 06/06/24 Dental Screening Dental Screen Date: 06/06/24 Did you have a dental visit in the last 12 months?: Yes Did you have a dental problem in the last 6 months where you did not have access to dental care?: No Was dental information given to patient?: Patient has dentist HPI Hand referral HPI Details L wrist pain from 04/23/2024 The patient is a 48-year-old male presenting with a TFCC tear of the left wrist, initially noticed after waking up on April 23. The wrist exhibits throbbing pain, especially on exertion and positioning. It was exacerbated by activities such as snow blowing. The patient has previously attempted bracing and steroid injections without relief. An X-ray performed was negative for fractures, prompting a recommendation for MRI to assess potential ligamentous damage. The patient has ongoing difficulty in scheduling an MRI. Additionally, a review of the patient?s health care management includes the follow-up for tubular adenoma discovered during a colonoscopy performed in January 2024, requiring surveillance in three to four years. - Colonoscopy performed in January 2024; tubular adenoma found and to be followed up in three to four years. - Bloodwork in April showed normal res ults including renal function, electrolytes, and normal glucose levels. - Mildly elevated triglycerides noted in October of the previous year. - Occupation: [employer]ATIONAL [employer], involves no significa nt physical exertion. - Substance Use: Consumes alcohol, two t o three glasses of wine, four to five times a week. - No tobacco or recreational drug use. - Musculoskeletal: Reports pain in the l eft wrist and previous suspicion of gout. - Digestive: Denies issues with bowel mo vements and swallowing. - Neurological: Denies dizziness except when performing certain exercises at the gym. - Cardiovascular: Denies chest pain or p alpitations. - Respiratory: Denies shortness of breat h or cough. - Genitourinary: Reports waking once at night to urinate. - Labs: April results indicate normal blood count, electrolytes, renal function, and glucose levels. Triglycerides mildly elevated. - Imaging: Left wrist X-ray negative for fractures. [facility] Medical History (Updated 06/06/24 @ 14:53 by Momo Johnson MD) Obesity (BMI 30.0-34.9) Colon cancer screening Surgical History No pertinent past surgical history Family History Father Heart attack Mother Breast cancer Social History (Updated 06/06/24 @ 14:37 by Momo Johnson MD) Housing: House Alcohol intake: current Comment: 4-5x a week 2-3 glass of wine Patient Tobacco Use Status: Never used Tobacco Tobacco use type: Cigarette e-Cigarette/Vaping Use: Never Used Second Hand Smoke Exposure: No service: No Current occupational status: employed Current occupational exposures/hazards: No Cognitive needs: No Hearing needs: No Vision needs: Yes (glasses ) Questionnaire PHQ-9 Over the last 2 weeks, how often have you been bothered by any of the following problems? 1. Little interest or pleasure in doing things: not at all 2. Feeling down, depressed, or hopeless: not at all 3. Trouble falling or staying asleep, or sleeping too much: not at all 4. Feeling tired or having little energy: not at all 5. Poor appetite or overeating: not at all 6. Feeling bad about yourself - or that you are a failure or have let yourself or your family down: not at all 7. Trouble concentrating on things, such as reading the newspaper or watching television: not at all 8. Moving or speaking so slowly that other people could have noticed. Or the opposite - being so fidgety or restless that you have been moving around a lot more than usual: not at all 9. Thoughts that you would be better off or of hurting yourself in some way: not at all Total score: 0 Depression Screening Interpretation: Negative Depression Screening Done: Yes 16712 - PHQ-9 Billing: Yes Source: Developed by Drs. Deni Smith, Anel Gaspar, Cisco Mitchell and colleagues, with an educational helen from [employer]. Thrive Questionnaire Date Thrive assessed: 06/06/24 I am a: Patient What is your living situation today?: I have a steady place to live Within the past 12 months, did the food you bought not last and you didn't have the money to get more?: Never true Within the past 12 months, did you worry whether your food would run out before you got money to buy more?: Never true Do you have trouble paying for medicines?: No Do you have trouble getting transportation to medical appointments?: No Do you have trouble paying your heating and electricity bill?: No Do you have trouble taking care of your child, family member or friend?: No Do you have trouble with day-to-day activities such as bathing, preparing meals, shopping, managing finances, etc.?: No Are you currently unemployed and looking for a job?: No Are you interested in more education?: No Currently or been in a relationship where the following occur: No concerns reported THRIVE Score: 0 AUDIT C Alcohol Use Questionnaire (AUDIT-C) 2. How many drinks containing alcohol do you have on a typical day when you are drinking?: 3 or 4 3. How often do you have six or more drinks on one occasion?: Weekly Total Score: 4 BELINDA-7 AMB Questionnaire BELINDA-7 Date BELINDA - 7 assessed: 06/06/24 Feeling nervous, anxious, or on edge: 0 = Not at all Not being able to stop or control worryin = Not at all Worrying too much about different things: 0 = Not at all Trouble relaxin = Not at all Being so restless that it is hard to sit still: 0 = Not at all Becoming easily annoyed or irritable: 0 = Not at all Feeling afraid as if something awful might happen: 0 = Not at all Total BELINDA-7 score (0-4 normal; 5-9 mild; 10-14 moderate; 15-21 severe): 0 Source: Developed by Anel Stone Kurt Kroenke and colleagues, with an educational helen from [employer]. Review of Systems Const Denies poor appetite and Denies weakness Eyes Denies no additional complaints ENT Reports Normal hearing present, Denies dizziness, Denies nasal congestion, Denies tinnitus and Denies sore throat Card Denies chest pain, Denies syncope, Denies rapid heart rate and Denies dyspnea Resp Denies cough and Denies dyspnea GI Denies change in stool character, Reports constipation, Denies diarrhea, Denies nausea and Denies vomiting Denies dysuria and Denies urinary frequency Neuro Reports Normal hearing present, Denies confusion, Denies dizziness, Denies syncope and Denies weakness Psych Denies confusion Physical exam (Primary Care) Vital Signs: Last Vital Signs Pulse 80 06/06/24 13:33 BP 124/76 06/06/24 13:33 Pulse Ox 98 06/06/24 13:33 Oxygen Delivery Method Room Air 06/06/24 13:33 BMI result Body Mass Index 30.6 Tobacco/Smoking Status: Tobacco use Status Tobacco use date assessed 06/06/24 06/06/24 13:34 Patient Tobacco Use Status Never used Tobacco 06/06/24 13:34 Tobacco use type Cigarette 06/06/24 13:34 e-Cigarette/Vaping Use Never Used 06/06/24 13:34 PHQ-9: PHQ-9 Score PHQ-9: Total score 0 06/06/24 13:47 Depression Screening Interpretation: Negative Thrive Assessment: Date of Thrive Assessment Date Thrive assessed 06/06/24 06/06/24 13:34 Currently or been in a relationship where the following occur: No concerns reported Const General: alert and awake; No confusion Orientation/consciousness: No confusion HENMT Head: Yes normocephalic Ears: external ears normal and TM's normal bilaterally Face and sinus: Yes normal facial exam Mouth: moist mucous membranes Throat: Yes tonsils normal Eyes Conjunctivae: conjunctivae normal Pupils: Equal, round and reactive pupils present and Pupil accommodation reflex normal Direct Ophthalmoscopy: normal light reflex Neck Neck: No lymphadenopathy Thyroid: Thyroid normal Chest Chest palpation & inspection: normal inspection of the chest Resp Effort & Inspection: normal respiratory effort and no audible wheezes Auscultation: clear to auscultation bilaterally, no crackles, no wheezes and lung sounds not diminished Cardio Rate: regular rate Rhythm: regular rhythm Peripheral pulses: radial pulses present and dorsalis pedis present GI Palpation (GI): no masses Auscultation: normal bowel sounds and normoactive bowel sounds Rectal Exam - Male: Yes deferred Skin General skin exam: no rashes or lesions noted Rashes: no rashes Neuro General: deep tendon reflexes 2+ bilaterally and No confusion Cranial nerves: Yes Equal, round and reactive pupils present, Yes Midline tongue present, Yes Normal hearing present and Yes Ability to bilaterally elevate shoulders present Cognition (Neuro): normal cognition Gait exam (Neuro): Normal gait present Motor exam (neuro): 5/5 motor strength present throughout Deep tendon reflexes (DTR's): Right brachioradialis reflex intensity grade: 2+, Left brachioradialis reflex intensity grade: 2+, Right patellar reflex intensity grade: 2+ and Left patellar reflex intensity grade: 2+ Extrem General: No edema Coding Level of Care Code Est Pt Prev Care 40-64y(67017) Diagnoses Annual physical exam Z00.00 Tubular adenoma of colon D12.6 Hypercholesterolemia E78.00 Obesity (BMI 30.0-34.9) E66.9 Left wrist pain M25.532 Additional Codes PHQ-9 - 93967 - PHQ-9 Billing: Yes ([id number]) Assessment & Plan Assessment & Plan (1) Annual physical exam: Code(s): Z00.00 - Encounter for general adult medical examination without abnormal findings Category: Medical Plan: Patient is advised to eat healthy, keep well hydrated, keep active and have adequate sleep. (2) Tubular adenoma of colon: Comment: 01/2024 3-4 you Code(s): D12.6 - Benign neoplasm of colon, unspecified Category: Medical Plan: Patient was advised to get a repeat colonoscopy in 3-4 years. (3) Hypercholesterolemia: Code(s): E78.00 - Pure hypercholesterolemia, unspecified Category: Medical Plan: Avoid fried foods, chicken skin, eggs, butter margarine, pastries and meat. Be it pork or beef they have a lot of cholesterol LDL goal of less than 130 and triglyceride of less than 150. (4) Obesity (BMI 30.0-34.9): Code(s): E66.9 - Obesity, unspecified Category: Medical Plan: Diet and (5) Left wrist pain: Comment: Triangular fibrocartilage complex question of tear Code(s): M25.532 - Pain in left wrist Category: Medical Plan: Patient has seen new [place] [facility] and has been advised to get an MRI of the wrist. Plan - Continue efforts to schedule an MRI for a detailed evaluation of the TFCC tear in the left wrist. - Monitor triglyceride levels and lipid profile at next evaluation. - Follow-up colonoscopy planned in three to four years to monitor tubular adenoma. 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 I discussed with the patient the likely diagnosis of a TFCC tear, management including a definitive MRI, and the importance of pursuing imaging for accurate assessment. The potential benefits and risks of MRI were reviewed. We discussed follow-up care for tubular adenoma with surveillance colonoscopy every three to four years as preventative care. The importance of managing elevated triglycerides with lifestyle modifications was highlighted. I emphasized the need for regular check-ups for ongoing conditions and reassessed his medication and therapy plan. We clarified that, at this time, no additional referrals or surgical interventions are required unless indicated by MRI results. The benefits of flu vaccination and precautions against seasonal viruses were also reviewed. - Schedule and complete MRI for the left wrist. - Follow up on the colonoscopy in three to four years. - Maintain a healthy lifestyle, focusing on diet and exercise to manage weight and lipid levels. - Avoid excessive physical strain on the wrist until further evaluation. - Report any significant changes in symptoms or new concerns through the patient portal. - Continue regular monitoring for any health changes, particularly wake-up routines due to dizziness at the gym. Orders: Orders wrist LT wo con Today M25.532 - Pain in left wrist Comprehensive Met. Panel 5 Months E78.00 - Pure hypercholesterolemia, unspecified Free T4 (Free Thyroxine) 5 Months E78.00 - Pure hypercholesterolemia, unspecified Thyroid Stimulating Hormone 5 Months E78.00 - Pure hypercholesterolemia, un specified Complete Blood Count Auto Diff 5 Months E78.00 - Pure hypercholesterolemia, unspecified Lipid Panel 5 Months E78.00 - Pure hypercholesterolemia, unspecified Prostate Specific Antigen Scr 5 Months E78.00 - Pure hypercholesterolemia, unspecified Vitamin B12 and Folate 5 Months E78.00 - Pure hypercholesterolemia, unspecified
== END 2024-06-06 14:53 | disposition home or self-care (01) ==
PROVIDERS: PCP Internal Medicine; Visit Provider Internal Medicine
DX: Z00.00 Encounter for general adult medical examination without abnormal findings (principal); D12.6 Benign neoplasm of colon, unspecified; Z68.30 Body mass index [BMI] 30.0-30.9, adult; E66.9 Obesity, unspecified; E78.00 Pure hypercholesterolemia, unspecified; M25.532 Pain in left wrist

== ENCOUNTER → 2024-06-06 13:26 | Outpatient (BNVA) | payer BC, SELFPAY | PROVIDERS: PCP Internal Medicine; Visit Provider Internal Medicine | DX: Z00.00 Encounter for general adult medical examination without abnormal findings (principal); E78.00 Pure hypercholesterolemia, unspecified; E66.9 Obesity, unspecified; Z68.30 Body mass index [BMI] 30.0-30.9, adult; M25.532 Pain in left wrist; Z86.0101 Personal history of adenomatous and serrated colon polyps | CPT/HCPCS: 96127 ==

== ENCOUNTER 2024-06-23 10:27 | Outpatient (REF) | payer BC, SELFPAY | END 2024-06-23 10:28 | disposition home or self-care (01) | LOC: HO.MRI 10:27 | PROVIDERS: PCP Internal Medicine; Visit Provider Internal Medicine | DX: M25.532 Pain in left wrist (principal) | CPT/HCPCS: 73221 ==

== ENCOUNTER → 2024-06-23 10:45 | Outpatient (BNV) | payer BC, SELFPAY | PROVIDERS: PCP Internal Medicine; Visit Provider Radiology Diagnostic Radiology | DX: M25.532 Pain in left wrist (principal) | CPT/HCPCS: 73221 ==

== ENCOUNTER 2024-11-20 08:54 | Outpatient (AMB) | payer BC, SELFPAY ==
[2024-11-20 09:02] VITALS: BP 142/84; PULSE 64; RESP 18; TEMP 36.2; O2SAT 98; BMI 30.9
--- NOTE | 2024-11-20 09:02 | A.OFFPC_ITS ---
Vital Signs 11/20/24 09:02 Height 5 ft 9 in Weight 209 lb 6 oz BMI 30.9 BP 142/84 H Blood Pressure Location Lt brachial Position Sitting Respiration 18 Pulse 64 Pulse Source Pulse Oximeter Temp 97.1 F Temp Source Temporal Artery Scan Pulse Oximetry (%) 98 Oxygen Delivery Method Room Air Intake Visit Reasons: Annual Exam Allergies No Known Allergies Allergy (Verified 11/20/24 09:04) Tobacco use date assessed: 11/20/24 Dental Screening Dental Screen Date: 11/20/24 Did you have a dental visit in the last 12 months?: Yes Did you have a dental problem in the last 6 months where you did not have access to dental care?: No Was dental information given to patient?: Patient has dentist [facility] Medical History Obesity (BMI 30.0-34.9) Colon cancer screening Surgical History No pertinent past surgical history Family History Father Heart attack Mother Breast cancer Social History Housing: House Alcohol intake: current Comment: 4-5x a week 2-3 glass of wine Patient Tobacco Use Status: Never used Tobacco Tobacco use type: Cigarette e-Cigarette/Vaping Use: Never Used Second Hand Smoke Exposure: No service: No Current occupational status: employed Current occupational exposures/hazards: No Cognitive needs: No Hearing needs: No Vision needs: Yes (glasses ) Questionnaire PHQ-9 Over the last 2 weeks, how often have you been bothered by any of the following problems? 1. Little interest or pleasure in doing things: not at all 2. Feeling down, depressed, or hopeless: not at all 3. Trouble falling or staying asleep, or sleeping too much: not at all 4. Feeling tired or having little energy: not at all 5. Poor appetite or overeating: not at all 6. Feeling bad about yourself - or that you are a failure or have let yourself or your family down: not at all 7. Trouble concentrating on things, such as reading the newspaper or watching television: not at all 8. Moving or speaking so slowly that other people could have noticed. Or the opposite - being so fidgety or restless that you have been moving around a lot more than usual: not at all 9. Thoughts that you would be better off or of hurting yourself in some way: not at all Total score: 0 Source: Developed by Drs. Deni Smith, Anel Gaspar, Cisco Mitchell and colleagues, with an educational helen from [employer]. Thrive Questionnaire Date Thrive assessed: 11/18/24 I am a: Patient What is your living situation today?: I have a steady place to live Within the past 12 months, did the food you bought not last and you didn't have the money to get more?: Never true Within the past 12 months, did you worry whether your food would run out before you got money to buy more?: Never true Do you have trouble paying for medicines?: No Do you have trouble getting transportation to medical appointments?: No Do you have trouble paying your heating and electricity bill?: No Do you have trouble taking care of your child, family member or friend?: No Do you have trouble with day-to-day activities such as bathing, preparing meals, shopping, managing finances, etc.?: No Are you currently unemployed and looking for a job?: No Are you interested in more education?: Yes Please select the resources that you would like help with: None Currently or been in a relationship where the following occur: No concerns reported THRIVE Score: 0 AUDIT C Alcohol Use Questionnaire (AUDIT-C) 1. How often do you have a drink containing alcohol?: 2-3 times a week 2. How many drinks containing alcohol do you have on a typical day when you are drinking?: 3 or 4 3. How often do you have six or more drinks on one occasion?: Monthly Total Score: 6 BELINDA-7 AMB Questionnaire BELINDA-7 Date BELINDA - 7 assessed: 06/06/24 Feeling nervous, anxious, or on edge: 0 = Not at all Not being able to stop or control worryin = Not at all Worrying too much about different things: 0 = Not at all Trouble relaxin = Not at all Being so restless that it is hard to sit still: 0 = Not at all Becoming easily annoyed or irritable: 0 = Not at all Feeling afraid as if something awful might happen: 0 = Not at all Total BELINDA-7 score (0-4 normal; 5-9 mild; 10-14 moderate; 15-21 severe): 0 Source: Developed by Drs. Deni Smith, Anel Gaspar, Cisco Mitchell and colleagues, with an educational helen from [employer]. Physical exam (Primary Care) Vital Signs: Last Vital Signs Temp 97.1 F 11/20/24 09:02 Pulse 64 11/20/24 09:02 Resp 18 11/20/24 09:02 BP 142/84 H 11/20/24 09:02 Pulse Ox 98 11/20/24 09:02 Oxygen Delivery Method Room Air 11/20/24 09:02 BMI result Body Mass Index 30.9 Tobacco/Smoking Status: Tobacco use Status Tobacco use date assessed 11/20/24 11/20/24 09:05 Patient Tobacco Use Status Never used Tobacco 11/20/24 09:05 Tobacco use type Cigarette 11/20/24 09:05 e-Cigarette/Vaping Use Never Used 11/20/24 09:05 PHQ-9: PHQ-9 Score PHQ-9: Total score 0 11/20/24 09:05 Thrive Assessment: Date of Thrive Assessment Date Thrive assessed 11/18/24 11/20/24 09:05 Currently or been in a relationship where the following occur: No concerns reported Const General: alert; No acute distress Eyes Conjunctivae: conjunctivae normal Resp Auscultation: clear to auscultation bilaterally Cardio Rate: regular rate Rhythm: regular rhythm GI Inspection: Yes normal to inspection Extrem General: Yes normal to inspection and No edema Coding Level of Care Code Est Pt Level 4 (86145) Diagnoses Hypercholesterolemia E78.00 Blood pressure elevated without history of HTN R03.0 Obesity (BMI 30.0-34.9) E66.9 Left wrist pain M25.532 Assessment & Plan Assessment & Plan (1) Hypercholesterolemia: Code(s): E78.00 - Pure hypercholesterolemia, unspecified Category: Medical Plan: Avoid fried foods, chicken skin, eggs, butter margarine, pastries and meat. Be it pork or beef they have a lot of cholesterol this needs to be repeated (2) Blood pressure elevated without history of HTN: Code(s): R03.0 - Elevated blood-pressure reading, without diagnosis of hypertension Category: Medical Plan: BP high here and advise to monitor for now. Noted to be high this time (3) Obesity (BMI 30.0-34.9): Code(s): E66.9 - Obesity, unspecified Category: Medical Plan: Diet and exercise (4) Left wrist pain: Comment: Triangular fibrocartilage complex question of tear Code(s): M25.532 - Pain in left wrist Category: Medical Plan: Patient has been following up with orthopedics and the diagnosis of tenosynovitis and was referred to rheumatology. Patient does have a schedule Plan History of Present Illness The patient is a 49-year-old male presenting for a follow-up visit to manage chronic conditions and review recent diagnostic results. The patient has a history of obesity and hypercholesterolemia, with the last cholesterol check showing elevated triglycerides at 204 mg/dL in October of the previous year. He has been advised to repeat cholesterol testing and maintain a diet and exercise regimen. The patient has a history of tubular adenoma of the colon, with the last colonoscopy performed in January 2024. 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 He has undergone two courses of prednisone and has been referred to rheumatology for further evaluation. The patient's blood pressure was noted to be 140/88 mmHg during the visit, and he has been advised to monitor it at home. Health Maintenance - Colonoscopy performed in January 2024 for colon cancer screening - Discussion of shingles vaccination, recommended for age group Social History - Exercise: Patient engages in physical activity as part of managing hypercholesterolemia Review of Systems - Cardiovascular: Denies chest pain, palpitations, or syncope - Gastrointestinal: Reports normal bowel movements - Genitourinary: Reports nocturia once per night - Neurological: Denies headaches, dizziness, or balance issues - Musculoskeletal: Reports left wrist pain - General: Denies fever or chills Physical Exam General: Cooperative, healthy appearing, comfortable, no acute distress and well developed Orientation: Patient oriented x3 Limitations: No limitations Head: Normal to inspection Ears: Hearing grossly normal bilaterally Nose: Normal external nose present Face and sinus: Normal facial exam Eyes: Appearance normal, both eyes and all related structures Neck: Normal visual inspection and Yes full ROM Respiratory: Normal respiratory effort and able to speak in complete sentences. Clear to auscultation bilaterally Cardiovascular: Regular rate and rhythm. Normal S1 and S2. Blood pressure is a little bit high at 140/88 GI: Normal to inspection. Soft to palpation and nontender Skin: No rashes or lesions noted Neuro: Patient oriented x3 Extremities: Normal to inspection, except for left wrist with history of ulnocarpal synovitis and tendosynovitis. Results - MRI of the left wrist in June showed ulnocarpal synovitis and tenosynovitis - Cholesterol panel in October showed triglycerides at 204 mg/dL Plan The patient will continue to monitor his blood pressure at home, given the borderline hypertension noted during the visit. He is advised to repeat his cholesterol testing and maintain a diet and exercise regimen to manage hypercholesterolemia. The patient is scheduled for a follow-up with rheumatology to address the left wrist synovitis, with previous MRI findings indicating ulnocarpal synovitis and tenosynovitis. He has completed two courses of prednisone for this condition. Preventative care measures include a discussion on shingles vaccination, which is recommended for his age group. Patient was informed and verbally consented to the use of an ambient scribe for clinic note documentation during this visit. Discussion Notes During the visit, I discussed with the patient the importance of monitoring his blood pressure at home due to the borderline hypertension observed. We also reviewed the need to repeat cholesterol testing and maintain lifestyle modifications to manage hypercholesterolemia. I advised the patient to follow up with rheumatology for his left wrist synovitis, as the MRI showed ulnocarpal synovitis and tenosynovitis. We discussed the potential benefits of the shingles vaccine, which is recommended for his age group. Patient Instructions - Monitor blood pressure at home regularly. - Repeat cholesterol testing as advised. - Follow a healthy diet and exercise regularly to manage cholesterol levels. - Attend scheduled follow-up with rheumatology for wrist evaluation. - Consider receiving the shingles vaccine at the pharmacy.
--- OUTSIDE RECORDS SUMMARY | 2024-11-20 09:10 | XMS_ITS | Referral Summary ---
Author Organization [facility] Address [address] [place] [address] Care Team Providers Care Ball Truing Machine Operator Name Role Phone Momo Johnson Primary Care Provider [phone] Encounters Date Type Department Care Team Description 10/29/2024 9:15 AM EDT Follow-Up [facility] [address] [place] [address] Emilee Neal MD Stiffness of joint, hand, left (Primary Dx) 09/10/2024 Orders Only External Imaging [address] [place] [id number] Radiology, External 09/10/2024 9:45 AM EDT Follow-Up [facility] [address] [place] [address] Emilee Neal MD Stiffness of joint, hand, left (Primary Dx) from Last 3 Months Allergies No known active allergies Medications No known medications Social History Tobacco Use Types Packs/Day Years Used Date Smoking Tobacco: Never Assessed Sex and Gender Information Value Date Recorded Sex Assigned at Male 08/03/2024 10:23 AM EDT Legal Sex Male 10:20 AM EDT Gender Identity Male 08/03/2024 10:23 AM EDT Sexual Orientation Straight 08/04/2024 4: 31 PM EDT Plan of Treatment Not on file Insurance [facility] HMO/POS Care Teams Ball Truing Machine Operator Relationship Specialty Start Date End Date Momo Johnson [address] [place] [address] [place] [address] PCP - General Internal Medicine 08/03/24
== END 2024-11-20 09:58 | disposition home or self-care (01) ==
PROVIDERS: PCP Internal Medicine; Visit Provider Internal Medicine
DX: E78.00 Pure hypercholesterolemia, unspecified (principal); R03.0 Elevated blood-pressure reading, without diagnosis of hypertension; E66.9 Obesity, unspecified; Z68.30 Body mass index [BMI] 30.0-30.9, adult; M25.532 Pain in left wrist

== ENCOUNTER 2024-12-05 10:50 | Outpatient (AMB) | payer BC, SELFPAY ==
[2024-12-05 10:53] VITALS: BP 180/120; PULSE 61; O2SAT 98; BMI 31.3
--- NOTE | 2024-12-05 10:53 | MHC.OFFVIS ---
Vital Signs 12/05/24 10:53 Height 5 ft 9 in Weight 212 lb 1.355 oz BMI 31.3 BP 180/120 H Blood Pressure Location Rt brachial Position Sitting Pulse 61 Pulse Source Pulse Oximeter Pulse Oximetry (%) 98 Oxygen Delivery Method Room Air Intake Visit Reasons: Pain in left wrist Intake Note: Patient presents today for pain in left wrist. Accompanied by: Self / Same As Patient Allergies No Known Allergies Allergy (Verified 11/20/24 09:04) HPI HPI Pain in left wrist: Details: New patient visit He developed left wrist swelling and pain on April 23 that evolved to involve dorsal wrists and fingers. He presented to urgent care and received a medication that did not work. He could not remember the name of the initial medicaition. He then received prednisone course in April. He is unable to provide information about the dose of prednisone or taper that he received. Prednisone course was short course. He received another course of steroid in a pack ? Medrol Dosepak in May. The 2 courses of steroids reduced the swelling. He continued to have pain but it was tolerable. He saw orthopedic surgeon ABRIL in June who performed an MRI of his left wrists. He did not receive any intervention from orthopedic surgeon. He then saw a hand surgeon at [facility] who has prescribed him physical therapy, which he continues to do weekly. Physical therapy has improved his range of motion. During the time that he is having his wrists stretched in physical therapy he experiences paraesthesia. Denies paraesthesia outside of physical therapy sessions. He was able to golf in September. After golfing he had increase pain that eventually subsided. Prior to golfing he continued to have pain but it was more tolerable. At this time he denies having any hand pain. He has taken ibuprofen intermittently. Denies any other involvement of joint swelling or dactylitis or iritis or psoriasis or IBD or back pain or buttocks pain. Denies having back pain when he was young. No family history of psoriasis or IBD or rheumatoid arthritis or lupus. His brother had gout. He denies any trauma leading to the onset of symptoms. Denies any infections proceeding joint swelling. Denies hospitalization. He drinks 2-3 drinks a day. 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 He denies any recreational drug use or smoking history. No past medical history. No surgical history. [facility] Medical History Obesity (BMI 30.0-34.9) Colon cancer screening Surgical History No pertinent past surgical history Family History Father Heart attack Mother Breast cancer Social History Housing: House Alcohol intake: current Comment: 4-5x a week 2-3 glass of wine Patient Tobacco Use Status: Never used Tobacco Tobacco use type: Cigarette e-Cigarette/Vaping Use: Never Used Second Hand Smoke Exposure: No service: No Current occupational status: employed Current occupational exposures/hazards: No Cognitive needs: No Hearing needs: No Vision needs: Yes (glasses ) Physical Exam Vital Signs: Last Vital Signs Pulse 61 12/05/24 10:53 BP 180/120 H 12/05/24 10:53 Pulse Ox 98 12/05/24 10:53 Oxygen Delivery Method Room Air 12/05/24 10:53 BMI result Body Mass Index 31.3 Const Other: General: Comfortable CVS: RRR Respiratory: clear to auscultation bilaterally. Good respiratory effort Skin: No lesions seen MSK: He has mild synovitis of left wrist, 2nd to 3rd PIPs, and IP joint. Third PIP of left hand is tender. He can not make a full fist of his left hand. Normal range of motion of rest of upper extremities. Normal range of motion of lower extremities. No MTP tenderness. No dactylitis. No enthesitis. No Achilles tendon tenderness. No heel tenderness. Results Reviewed Results Reviewed: Ordering Physician: Momo Johnson MD Date of Service: 06/23/24 Procedure(s): MR wrist LT wo con Accession Number(s): [id number] cc: Momo Johnson MD~ CLINICAL HISTORY: M25.532 - Pain in left wrist MR left wrist without gadolinium Comparison: None Findings: Hwdx-xq-wkpvkhtt likely reactive edematous changes within the triquetrum and less extensively lunate, as well as the 3rd and 4th metacarpal bases. Small cysts noted in some of the carpal bones. Minimal subchondral edematous changes within the distal radius (level of radiolunate joint). No significant cartilage degenerative changes. Grade 1 sprain versus mild reactive edematous changes in the volar and dorsal radioulnar ligaments. Intact TFC. Moderate edematous changes in the meniscus homologue. Moderate synovitis of the ulnocarpal joint. Yxhm-ao-zmtixvrc synovitis at level of the dorsal carpus more distally. Grade 1 sprain versus edematous reactive changes in the volar and dorsal extrinsic carpal ligaments. Grade 1-2 sprain of the scaphoid attachment of the scapholunate ligament (proximal aspect). Intact lunotriquetral ligament. Mild tendinosis of the 1st and 5th extensor compartment tendons and mild tenosynovitis of the rest of the extensor compartment tendons. Minimal tenosynovitis/mild edematous musculotendinous junction changes affecting some of the flexor tendons at and just distal to the carpal tunnel. Mild high T2 signal intensity of portions of the visualized median nerve may be incidental or secondary to neuritis/neuropathy. Mild edematous changes in the thenar muscles. Xahl-yq-xptgwngq edematous subcutaneous changes predominantly along the dorsal aspect of the wrist. Guyon's canal is unremarkable. IMPRESSION: 1. Moderate ulnocarpal synovitis and pujn-uk-ypakhegk synovitis of the dorsal aspect of the carpus more distally. 2. Mild tendinosis/tenosynovitis affecting all of the extensor carpal compartments. 3. Minimal tenosynovitis of the flexor tendons at/in the vicinity of the carpal tunnel. 3. Mild high T2 signal intensity of portions of the visualized median nerve may be incidental or secondary to neuritis/neuropathy. Correlate clinically. 5. Other findings as above. X-ray of left wrist and hand from 04/27/2024 reveals no acute fracture or malalignment. Soft tissue swelling of the dorsal aspect of the hand. No arthritic changes. 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 Less likely crystal arthritis is contributing to his presentation. He did not have any imaging findings of CPPD disease. It would be rare for gout to persist since March 2024 as natural course of gout typically last between 7-14 days. We discussed further evaluation with laboratory workup for asymmetric inflammatory arthritis with differential diagnosis including atypical rheumatoid arthritis versus spondyloarthritis. He does not have any other spondyloarthritis features. Code(s): M19.90 - Unspecified osteoarthritis, unspecified site Category: Medical Plan: Labs ordered X-rays left wrist and bilateral hands ordered to evaluate for radiographic progression of disease Prednisone course prescribed to treat current symptoms Return to clinic in 1-2 months to review results and discuss next steps/DMARD therapy (2) Swelling of left wrist: Code(s): M25.432 - Effusion, left wrist Category: Medical Plan: See above Orders: Orders Creatinine Today M25.432 - Effusion, left wrist Alanine Aminotransferase Today M25.432 - Effusion, left wrist C Reactive Protein Today M25.432 - Effusion, left wrist, Z79.899 - Other adjunct faculty for medical terminology (current) drug therapy Uric Acid Today M25.432 - Effusion, left wrist Rheumatoid Factor Today M25.432 - Effusion, left wrist Erythrocyte Sedimentation Rate Today M25.432 - Effusion, left wrist, Z79.899 - Other adjunct faculty for medical terminology (current) drug therapy Cyclic Citrullinated Peptide Today M25.432 - Effusion, left wrist Hepatitis B,C Profile Today M25.432 - Effusion, left wrist Aspartate Amino Transferase Today M25.432 - Effusion, left wrist Complete Blood Count Auto Diff Today M25.432 - Effusion, left wrist HLA B27 Today M25.432 - Effusion, left wrist T Spot TB Today M25.432 - Effusion, left wrist XR Hand Bilat min 3v Today M19.90 - Unspecified osteoarthritis, unspecified site XR wrist LT min 3V Today M19.90 - Unspecified osteoarthritis, unspecified site Medications: New prednisone Take 4 tablet daily 5 days, 3 tablets daily 5 days, 2 tablets daily 5 days, 1 tablet daily 5 days then stop. Take prednisone with food. 5 mg PO DIRECTED 50 tabs 0RF Coding Level of Care Code New Pt Level 4 (12191) Diagnoses Chronic inflammatory arthritis M19.90 Swelling of left wrist M25.432
--- OUTSIDE RECORDS SUMMARY | 2024-12-05 11:44 | XMS_ITS | Referral Summary ---
Author Organization [facility] Address [address] [place] [address] Care Team Providers Care Knockout Worker Name Role Phone Momo Johnson Primary Care Provider [phone] Encounters Date Type Department Care Team Description 10/29/2024 9:15 AM EDT Follow-Up [facility] [address] [place] [address] Emilee Neal MD Stiffness of joint, hand, left (Primary Dx) 09/10/2024 Orders Only External Imaging [address] [place] [id number] Radiology, External 09/10/2024 9:45 AM EDT Follow-Up [facility] [address] [place] [address] Emilee Neal MD Stiffness of joint, hand, [...] Plan of Treatment Not on file Insurance [facility] HMO/POS Care Teams Knockout Worker Relationship Specialty Start Date End Date Momo Johnson [address] [place] [address] [place] [address] PCP - General Internal Medicine 08/03/24
== END 2024-12-05 12:51 | disposition home or self-care (01) ==
LOC: HO.RHES 10:51
PROVIDERS: PCP Internal Medicine; Visit Provider Internal Medicine Rheumatology
DX: M19.90 Unspecified osteoarthritis, unspecified site (principal); M25.432 Effusion, left wrist
CPT/HCPCS: 99204

== ENCOUNTER 2024-12-05 10:50 | Outpatient (REF) | payer BC, SELFPAY ==
[2024-12-05 17:34] LABS: MANUAL DIFF FLAG NO
[2024-12-05 17:43] LABS: Hematocrit 47.4 % (42.0-52.0); Hemoglobin 15.7 g/dl (14.0-18.0); Imm Gran Abs Auto 0.03 X10*3/uL (0.00-0.03); Imm Gran Pct Auto 0.4 % (0.0-0.4); Lymphocytes Absolute Auto 2.0 X10*3/uL (1.2-4.9); Mean Corpuscular HGB Conc 33.1 g/dl (31.0-36.0); Mean Corpuscular Hemoglobin 30.4 pg (27.0-33.0); Mean Corpuscular Volume 91.7 fL (80.0-98.0); NRBC Abs Auto 0.000 X10*3/uL (0.0-0.012); NRBC Pct Auto 0.0 /100WBC (0.0-0.2); Platelet Count 245 X10*3/uL (160-400); Red Blood Count 5.17 X10*6/uL (4.60-5.80); White Blood Count 8.3 X10*3/uL (4.8-10.8)
[2024-12-05 17:44] LABS: Hematocrit 46.7 % (42.0-52.0); Hemoglobin 15.8 g/dl (14.0-18.0); Imm Gran Abs Auto 0.05 X10*3/uL (0.00-0.03); Imm Gran Pct Auto 0.6 % (0.0-0.4); Lymphocytes Absolute Auto 2.0 X10*3/uL (1.2-4.9); Mean Corpuscular HGB Conc 33.8 g/dl (31.0-36.0); Mean Corpuscular Hemoglobin 30.7 pg (27.0-33.0); Mean Corpuscular Volume 90.7 fL (80.0-98.0); NRBC Abs Auto 0.000 X10*3/uL (0.0-0.012); NRBC Pct Auto 0.0 /100WBC (0.0-0.2); Platelet Count 232 X10*3/uL (160-400); Red Blood Count 5.15 X10*6/uL (4.60-5.80); White Blood Count 8.3 X10*3/uL (4.8-10.8)
[2024-12-05 17:56] LABS: Alanine Aminotransferase 43 U/L (0-40); Aspartate Amino Transferase 42 U/L (5-37); Uric Acid 8.3 mg/dL (3.4-7.0)
[2024-12-05 18:00] LABS: Alanine Aminotransferase 45 U/L (0-40); Albumin Level 4.4 g/dL (3.5-5.0); Alkaline Phosphatase 51 U/L (39-117); Anion Gap 14 (12-20); Aspartate Amino Transferase 44 U/L (5-37); Blood Urea Nitrogen 13 mg/dL (9-16); Calcium 8.8 mg/dL (8.4-10.2); Carbon Dioxide 24 mmol/L (22-29); Chloride 107 mmol/L (96-108); Cholesterol 203 mg/dL (<200); Estimated Glomerular Filt Rate > 60; HDL Cholesterol 44 mg/dL (>40); Potassium 3.9 mmol/L (3.3-5.1); Sodium 141 mmol/L (135-145); Total Protein 7.3 g/dL (6.5-8.0); Triglycerides 168 mg/dL (<150)
[2024-12-05 18:15] LABS: Free T4 (Free Thyroxine) 0.93 ng/dL (0.71-1.85); Thyroid Stimulating Hormone 2.36 uIU/mL (0.32-4.0)
[2024-12-05 18:25] LABS: Folate 13.2 ng/mL (> or = 4.0); Vitamin B12 303 pg/mL (200-900)
[2024-12-05 18:32] LABS: Erythrocyte Sedimentation Rate 3 MM/HR (0-15)
[2024-12-06 04:23] LABS: HBS Num1 0.00 mIU/mL (0-7.99); HBc Num1 0.66 S/CO (0.00-0.79); HBsAGNum1 0.51 S/CO (0.00-0.99); Hepatitis B Surface Antigen Negative (Negative); ~HepC Num1 0.26 S/CO (0.00-0.79); ~Hepatitis B Surface Antibody NONREACTIVE (Nonreactive); ~Hepatitis C Antibody Nonreactive (Nonreactive)
[2024-12-08 11:54] LABS: TS Negative Control Passed; TS Panel A 1; TS Panel B 0; TS Positive Control Passed; TSpotTB Negative (Negative)
[2024-12-12 23:18] LABS: HLA B27 Negative (Negative)
== END 2024-12-05 10:51 | disposition home or self-care (01) ==
LOC: HO.HKASLDS 10:50
PROVIDERS: PCP Internal Medicine; Visit Provider Internal Medicine Rheumatology
DX: M19.90 Unspecified osteoarthritis, unspecified site (principal); M25.432 Effusion, left wrist; E78.00 Pure hypercholesterolemia, unspecified; Z11.1 Encounter for screening for respiratory tuberculosis; Z11.59 Encounter for screening for other viral diseases; Z12.5 Encounter for screening for malignant neoplasm of prostate; Z01.84 Encounter for antibody response examination; Z72.89 Other problems related to lifestyle
CPT/HCPCS: 36415; 80053; 80061; 82607; 82746; 84153; 84439; 84443; 84450; 84460; 84550; 85025; 85652; 86140; 86200; 86431; 86481; 86704; 86706; 86803; 86812; 87340

== ENCOUNTER 2025-02-21 08:05 | Outpatient (REF) | payer BC, SELFPAY ==
--- NOTE | ~2025-02-21 | XR_ITS ---
EXAMINATION: XR WRIST 3 OR MORE VIEWS LEFT HISTORY: M19.90 - Unspecified osteoarthritis, unspecified site COMPARISON: There are no prior studies available for comparison. FINDINGS: Four views of the left wrist are submitted. Osseous mineralization is normal. There is no fracture or dislocation. The joint spaces are preserved. The soft tissues are unremarkable. XR/XR wrist LT min 3V IMPRESSION: Unremarkable examination of the left wrist. Electronically signed by: Deni Whitney MD 02/21/2025 08:28 AM EDT
--- NOTE | ~2025-02-21 | XR_ITS ---
EXAMINATION: XR HAND 3 VIEWS BILATERAL HISTORY: M19.90 - Unspecified osteoarthritis, unspecified site COMPARISON: There are no prior studies available for comparison. FINDINGS: Six views of the bilateral hands are submitted. Osseous mineralization is normal. There is no fracture or dislocation. The joint spaces are preserved. No erosions are seen. The soft tissues are unremarkable. XR/XR Hand Bilat min 3v IMPRESSION: Unremarkable examination of the bilateral hands. Electronically signed by: Deni Whitney MD 02/21/2025 08:29 AM EDT
--- OUTSIDE RECORDS SUMMARY | 2025-02-21 08:18 | XMS_ITS | Clinical Summary ---
Author Organization [facility] Address [address] [place] [address] Care Team Providers Care Pc Network Technician Name Role Phone Momo Johnson Primary Care Provider [phone] Allergies No known active allergies Medications No known medications Social History Tobacco Use Types Packs/Day Years Used Date Smoking Tobacco: Never Assessed Sex and Gender Information Value Date Recorded Sex Assigned at Male 08/03/2024 10:23 AM EDT Legal Sex Male 10:20 AM EDT Gender Identity Male 08/03/2024 10:23 AM EDT Sexual Orientation Straight 08/04/2024 4: 31 PM EDT Plan of Treatment Health Maintenance Due Date Last Done Comments Cologuard 1973 Colon Cancer Screening 1973 Colonoscopy 1973 FOBT / Fit Test 1973 HIV Screening 1973 Hepatitis C Screening 1973 Sigmoidoscopy 1973 Hepatitis B Vaccines (1 of 3 - 19+ 3-dose series) 08/23 DTaP,Tdap,and Td Vaccines (1 - Tdap) 09/09/1995 Pneumococcal Vaccine: 50+ Years (1 of 1 - PCV) 024 Zoster Vaccines (1 of 2) 09/09/2023 Alcohol/Substance Use Screening 04/25/2024 Depression Screening and Follow-Up 04/25/2024 Social Drivers of Health Annual Screening 04/25/2024 COVID-19 Vaccine (1 - 2024- season) 2024 Influenza Vaccine (#1) 2024 RSV Vaccine (60+ years old a nd patients) (1 - 1-dose 75+ series) 2048 Insurance [facility] HMO/POS Care Teams Pc Network Technician Relationship Specialty Start Date End Date Momo Johnson [address] [place] [address] [place] [address] PCP - General Internal Medicine 08/03/24
== END 2025-02-21 08:06 | disposition home or self-care (01) ==
LOC: HO.XRAY 08:05
PROVIDERS: PCP Internal Medicine; Visit Provider Internal Medicine Rheumatology
DX: M47.819 Spondylosis without myelopathy or radiculopathy, site unspecified (principal); R74.01 Elevation of levels of liver transaminase levels; M65.942 Unspecified synovitis and tenosynovitis, left hand; Z79.899 Other long term (current) drug therapy
CPT/HCPCS: 73110; 73130

== ENCOUNTER → 2025-02-21 08:08 | Outpatient (BNV) | payer BC, SELFPAY | PROVIDERS: PCP Internal Medicine; Visit Provider Radiology Diagnostic Radiology | DX: M19.041 Primary osteoarthritis, right hand (principal); M19.042 Primary osteoarthritis, left hand; M19.032 Primary osteoarthritis, left wrist | CPT/HCPCS: 73110; 73130 ==

== ENCOUNTER 2025-02-21 08:53 | Outpatient (AMB) | payer BC, SELFPAY ==
[2025-02-21 09:01] VITALS: BP 140/100; PULSE 66; O2SAT 96; BMI 30.8
--- NOTE | 2025-02-21 09:01 | A.OFFVIS_ITS ---
Vital Signs 02/21/25 09:01 Height 5 ft 9 in Weight 208 lb 5.389 oz BMI 30.8 BP 140/100 H Blood Pressure Location Rt brachial Position Sitting Pulse 66 Pulse Source Pulse Oximeter Pulse Oximetry (%) 96 Oxygen Delivery Method Room Air Intake Visit Reasons: 2 month / review results Intake Note: Patient presents today for pain in left wrist. Allergies No Known Allergies Allergy (Verified 02/21/25 09:02) HPI HPI 2 month / review results: Details: He continues to have tightness in his left hand. Prednisone did not reduce swelling in his fingers. He had OT evaluation and reports that there is less swelling in his left wrists. No joint pain. He is unable to make a full fist with his left hand. No functional difficulties. [facility] Medical History Obesity (BMI 30.0-34.9) Colon cancer screening Surgical History No pertinent past surgical history Family History Father Heart attack Mother Breast cancer Social History Housing: House Alcohol intake: current Comment: 4-5x a week 2-3 glass of wine Patient Tobacco Use Status: Never used Tobacco Tobacco use type: Cigarette e-Cigarette/Vaping Use: Never Used Second Hand Smoke Exposure: No service: No Current occupational status: employed Current occupational exposures/hazards: No Cognitive needs: No Hearing needs: No Vision needs: Yes (glasses ) Physical Exam Vital Signs: Last Vital Signs Pulse 66 02/21/25 09:01 BP 140/100 H 02/21/25 09:01 Pulse Ox 96 02/21/25 09:01 Oxygen Delivery Method Room Air 02/21/25 09:01 BMI result Body Mass Index 30.8 Const Other: General: Comfortable CVS: RRR Respiratory: clear to auscultation bilaterally. Good respiratory effort Skin: No lesions seen MSK: He has synovitis of left 2nd, 3rd and 5th PIPs. He can not make a full fist of his left hand. Normal range of motion of rest of upper extremities. Normal range of motion of lower extremities. No MTP tenderness. No dactylitis. No enthesitis. No Achilles tendon tenderness. No heel tenderness. Assessment & Plan Assessment & Plan (1) Spondyloarthritis: Comment: Left wrist swelling resolved with prednisone course. He continues to have synovitis of left PIP with stiffness of left hand. Discussed diagnosis and management. Discussed side effects and benefits of methotrexate. Labs from November revealed mild transaminitis, which may be related to alcoholic hepatitis (he has a few drinks daily). Can consider Sulfasalazine if he continues to have transaminitis. He agrees to try methylprednisolone to reduce swelling in left fingers. Rheumatology history: Seronegative (rheumatoid factor, anti CCP antibody and HLA B27). Presenting with left wrist and hand swelling since March 2025. MRI wrist June 2024 confirms synovitis of left wrist. Code(s): M47.819 - Spondylosis without myelopathy or radiculopathy, site unspecified Category: Medical Plan: Baseline labs ordered. After lab results are back, I will consider starting methotrexate versus Sulfasalazine Information on DMARD given to patient Return to clinic in 3 months (2) Transaminitis: Code(s): R74.01 - Elevation of levels of liver transaminase levels Category: Medical Plan: I am rechecking liver panel this visit. If he continues to have transaminitis, he will quit drinking alcohol and I will repeat labs Orders: Orders Erythrocyte Sedimentation Rate Today M47.819 - Spondylosis without myelopathy or radiculopathy, site unspecified, Z79.899 - Other intermediate (current) drug therapy Liver Panel Today R74.01 - Elevation of levels of liver transaminase levels Complete Blood Count Auto Diff Today M47.819 - Spondylosis without myelopathy or radiculopathy, site unspecified Creatinine Today M47.819 - Spondylosis without myelopathy or radiculopathy, site unspecified C Reactive Protein Today M47.819 - Spondylosis without myelopathy or radiculopathy, site unspecified, Z79.899 - Other sap hana architect (current) drug therapy Medications: New methylprednisolone (Medrol) Take 4 tablets daily for 7 days, 3 tablets daily for 7 days, 2 tablets daily for 7 days, 1 tablet daily for 7 days then stop. Take methylprednisolone with food 4 mg PO .As prescribed 70 tabs 0RF Coding Level of Care Code Est Pt Level 4 (85984) Complex EM visit Add On G2211 Diagnoses Spondyloarthritis M47.819 Transaminitis R74.01
== END 2025-02-21 10:11 | disposition home or self-care (01) ==
PROVIDERS: PCP Internal Medicine; Visit Provider Internal Medicine Rheumatology
DX: M47.819 Spondylosis without myelopathy or radiculopathy, site unspecified (principal); R74.01 Elevation of levels of liver transaminase levels
CPT/HCPCS: 99214